=== PATIENT | male | born 1975 | race Caucasian/White ===

== ENCOUNTER 2017-06-27 10:35 | Emergency (ER) | payer OTHER ==
[~2017-06-27] VITALS: Ht 185.4 cm; Wt 93.0 kg
[2017-06-27] MEDS ORDERED: SUMA11AE NS (11:45)
[2017-06-27] MEDS ORDERED: PROP60TA17 PO (11:45)
[2017-06-27] MEDS ORDERED: MULT1TAB69 PO (11:45)
[2017-06-27] MEDS ORDERED: AMOX500C2 PO (11:45)
--- NOTE | 2017-06-27 12:28 | ED Headache ---
General Chief Complaint: Head/Cervical Problems Stated Complaint: MIGRAINE Nursing Triage Note: STARTED GETTING MIGRAINE AND FEELING SLUGGISH ON TUESDAY. WENT TO [facility] ON TUESDAY ET [facility] ON TUESDAY. STATES HE'S ACTING DIFFERENT WITH THIS MIGRAINE. Nursing Sepsis Screen: No Definite Risk Source: patient Exam Limitations: no limitations History of Present Illness Time seen by provider: 12:26 Initial Comments To ER with a retro-orbital headache, fatigue, nausea, rhinorrhea, cough photophobia for the past 3 days. On the first day of this he went to [facility] and was given a shot of medication which helped temporarily. He reports that he has a history of migraines frequently and that they've been bothering him about twice per week since he moved to this area 6 months ago. His states this one is different because he seems more sluggish than usual. He is alert and oriented person place time and situation. Timing/Duration: other Severity/Quality: moderate Location: frontal Prior Headaches/Recent Trauma: frequent headaches Modifying Factors: worse with exposure to light, worse with movement, improves with rest Associated Symptoms: nausea/vomiting, No stiff neck Allergies and Home Medications Allergies Coded Allergies: No Known Drug Allergies (Unverified , 06/27/17) Home Medications Amoxicillin 500 Mg Capsule, 500 MG PO TID for 7 Days, #21 (Reported) Multivitamin 1 Each Tablet, 1 EACH PO, (Reported) Propranolol HCl 60 Mg Tablet, 60 MG PO BID, (Reported) Sumatriptan Succinate 11 Mg Aer.pow.ba, 11 MG NS, (Reported) Constitutional: see HPI Eyes: No Symptoms Reported Ears, Nose, Mouth, Throat: no symptoms reported Respiratory: no symptoms reported Cardiovascular: no symptoms reported Genitourinary: no symptoms reported Musculoskeletal: no symptoms reported Skin: no symptoms reported Psychiatric/Neurological: See HPI, Headache Past Vlxlsss-Fgsisa-Pibbge Hx Patient Social History Alcohol Use: Occasionally Uses Recreational Drug Use: No Smoking Status: Former Smoker Former Smoker, Quit: May 31, 2010 Recent Foreign Travel: No Contact w/Someone Who Travel: No Recent Infectious Disease Expo: No Recent Hopitalizations: No Seasonal Allergies Seasonal Allergies: Yes Surgeries History of Surgeries: No Respiratory History of Respiratory Disorde: Yes Respiratory Disorders: Asthma Cardiovascular History of Cardiac Disorders: No Neurological History of Neurological Disord: Yes Neurological Disorders: Headaches /Migraines Genitourinary History of Genitourinary Disor: No Gastrointestinal History of Gastrointestinal Di: No Musculoskeletal History of Musculoskeletal Dis: No Endocrine History of Endocrine Disorders: Yes (HYPOGLYCEMIA) HEENT History of HEENT Disorders: No Cancer History of Cancer: No Psychosocial History of Psychiatric Problem: Yes Behavioral Health Disorders: Anxiety, Depression Integumentary History of Skin or Integumenta: No Blood Transfusions History of Blood Disorders: No Adverse Reaction to a Blood Tr: No Physical Exam Vital Signs Vital Sign - Last 12Hours 06/27/17 11:27 Temp 97.7 Pulse 48 Resp 18 B/P (MAP) 109/66 Pulse Ox 100 O2 Delivery Room Air Capillary Refill : Less Than 3 Seconds General Appearance: WD/WN, no apparent distress HEENT: PERRL/EOMI, normal ENT inspection Neck: non-tender, full range of motion Respiratory: no respiratory distress, no accessory muscle use Gastrointestinal: non tender, soft Extremities: normal range of motion, non-tender Psychiatric: alert, oriented x 3 Crainal Nerves: normal hearing, normal speech, PERRL Progress/Results/Core Measures Results/Orders Lab Results Laboratory Tests Test 06/27/17 12:38 06/27/17 13:13 Range/Units White Blood Count 7.7 4.3-11.0 10^3/uL Red Blood Count 5.04 4.35-5.85 10^6/uL Hemoglobin 14.7 13.3-17.7 G/DL Hematocrit 42 40-54 % Mean Corpuscular Volume 84 80-99 FL Mean Corpuscular Hemoglobin 29 25-34 PG Mean Corpuscular Hemoglobin Concent 35 32-36 G/DL Red Cell Distribution Width 12.3 10.0-14.5 % Platelet Count 280 130-400 10^3/uL Mean Platelet Volume 10.1 7.4-10.4 FL Neutrophils (%) (Auto) 69 42-75 % Lymphocytes (%) (Auto) 23 12-44 % Monocytes (%) (Auto) 7 0-12 % Eosinophils (%) (Auto) 1 0-10 % Basophils (%) (Auto) 0 0-10 % Neutrophils # (Auto) 5.3 1.8-7.8 X 10^3 Lymphocytes # (Auto) 1.8 1.0-4.0 X 10^3 Monocytes # (Auto) 0.5 0.0-1.0 X 10^3 Eosinophils # (Auto) 0.1 0.0-0.3 10^3/uL Basophils # (Auto) 0.0 0.0-0.1 10^3/uL Sodium Level 142 135-145 MMOL/L Potassium Level 4.2 3.6-5.0 MMOL/L Chloride Level 105 98-107 MMOL/L Carbon Dioxide Level 27 21-32 MMOL/L Anion Gap 10 5-14 MMOL/L Blood Urea Nitrogen 14 7-18 MG/DL Creatinine 0.98 0.60-1.30 MG/DL Estimat Glomerular Filtration Rate > 60 BUN/Creatinine Ratio 14 Glucose Level 102 70-105 MG/DL Calcium Level 9.7 8.5-10.1 MG/DL Total Bilirubin 0.4 0.1-1.0 MG/DL Aspartate Amino Transf (AST/SGOT) 24 5-34 U/L Alanine Aminotransferase (ALT/SGPT) 30 0-55 U/L Alkaline Phosphatase 89 40-136 U/L Total Protein 7.5 6.4-8.2 GM/DL Albumin 4.0 3.2-4.5 GM/DL Urine Color NURIA H Urine Clarity CLEAR Urine pH 6.5 5-9 Urine Specific [place] 1.010 L 1.016-1.022 Urine Protein NEGATIVE NEGATIVE Urine Glucose (UA) NEGATIVE NEGATIVE Urine Ketones NEGATIVE NEGATIVE Urine Nitrite NEGATIVE NEGATIVE Urine Bilirubin NEGATIVE NEGATIVE Urine Urobilinogen NORMAL NORMAL MG/DL Urine Leukocyte Esterase NEGATIVE NEGATIVE Urine RBC (Auto) NEGATIVE NEGATIVE Urine RBC NONE /HPF Urine WBC NONE /HPF Urine Squamous Epithelial Cells RARE /HPF Urine Crystals NONE /LPF Urine Bacteria NEGATIVE /HPF Urine Casts NONE /LPF Urine Mucus SMALL H /LPF Urine Culture Indicated NO Urine Opiates Screen NEGATIVE NEGATIVE Urine Oxycodone Screen NEGATIVE NEGATIVE Urine Methadone Screen NEGATIVE NEGATIVE Urine Propoxyphene Screen NEGATIVE NEGATIVE Urine Barbiturates Screen NEGATIVE NEGATIVE Ur Tricyclic Antidepressants Screen NEGATIVE NEGATIVE Urine Phencyclidine Screen NEGATIVE NEGATIVE Urine Amphetamines Screen NEGATIVE NEGATIVE Urine Methamphetamines Screen NEGATIVE NEGATIVE Urine Benzodiazepines Screen NEGATIVE NEGATIVE Urine Cocaine Screen NEGATIVE NEGATIVE Urine Cannabinoids Screen NEGATIVE NEGATIVE My Orders Orders - RAMOS QUIROGA [employer] Cbc With Automated Diff (06/27/17 12:21) Comprehensive Metabolic Panel (06/27/17 12:21) Ua Culture If Indicated (06/27/17 12:21) Drug Screen Stat (Urine) (06/27/17 12:21) Saline Lock/Iv-Start (06/27/17 12:21) Ct Head Wo (06/27/17 12:21) Ketorolac Injection (Toradol Injection) (06/27/17 12:30) Ns Iv 1000 Ml (Sodium Chloride 0.9%) (06/27/17 12:30) Prochlorperazine Injection (Compazine In (06/27/17 12:30) Diphenhydramine Injection (Benadryl Inje (06/27/17 12:30) Medications Given in ED Current Medications Medications Dose Ordered Sig/Nestor Route Start Time Stop Time Status Last Admin Dose Admin Diphenhydramine HCl 12.5 mg ONCE ONCE IVP 06/27/17 12:30 06/27/17 12:31 DC 06/27/17 12:33 12.5 MG Ketorolac Tromethamine 30 mg ONCE ONCE IVP 06/27/17 12:30 06/27/17 12:31 DC 06/27/17 12:32 30 MG Prochlorperazine Edisylate 10 mg ONCE ONCE IV 06/27/17 12:30 06/27/17 12:31 DC 06/27/17 12:32 10 MG Vital Signs/I&O Vital Sign - Last 12Hours 06/27/17 11:27 Temp 97.7 Pulse 48 Resp 18 B/P (MAP) 109/66 Pulse Ox 100 O2 Delivery Room Air Blood Pressure Mean: 80 Diagnostic Imaging Diagonstic Imaging: CT Comments NAME: [facility] REC#: [id number] PT STATUS: REG ER : 1975 PHYSICIAN: RAMOS QUIROGA APRN ADMIT DATE: 06/27/17/ER Draft Date of Exam:06/27/17 CT HEAD WO PROCEDURE: CT head without contrast. TECHNIQUE: Multiple contiguous axial images were obtained through the brain without the use of intravenous contrast. INDICATION: Migraine headaches. COMPARISON: None FINDINGS: No acute intracranial hemorrhage, mass effect or edema is seen. Woodson-white junction is preserved. No focal abnormality is seen. The ventricles appear normal. The paranasal sinuses and mastoids are clear as visualized. IMPRESSION: No acute intracranial abnormality is seen. Dictated on workstation # [id number] Dict: 06/27/17 1252 Trans: 06/27/17 1304 [id number] Interpreted by: KWAN HARRINGTON DO Electronically signed by: Departure Communication (Admissions) Progress Notes He is concerned about why he is so much more fatigued with this migraine than typically. I advised and is likely because of the viral syndrome that is to account for his rhinorrhea, cough in combination with a migraine.. Impression Impression: Primary Impression: Headache Disposition: 01 HOME, SELF-CARE Condition: Improved Departure-Patient Inst. Decision time for Depature: 13:36 Referrals: NO,LOCAL PHYSICIAN (PCP) Primary Care Physician Patient Instructions: Headache, Adult (DC) Add. Discharge Instructions: 1. Follow-up with your regular doctor 2. Return to ER for any concerns 3. All discharge instructions reviewed with patient and/or family. Voiced understanding. RAMOS QUIROGA APRN Jun 27, 2017 12:28
[2017-06-27] MEDS ORDERED: PROCHLORPERAZINE 10 MG/2ML INJ (COMPAZINE) IV ONE (12:30)
[2017-06-27] MEDS ORDERED: KETOROLAC 30 MG/ML VIAL IVP ONE (12:30)
[2017-06-27] MEDS ORDERED: NS IV 1000 ML 1,000 ML IV SCH (12:30)
[2017-06-27] MEDS ORDERED: diphenhydrAMINE 50 MG/ML INJ (BENADRYL) IVP ONE (12:30)
[2017-06-27 12:49] LABS: BASOPHILS % (AUTO) 0 % (0-10); EOSINOPHILS # (AUTO) 0.1 10^3/uL (0.0-0.3); EOSINOPHILS % (AUTO) 1 % (0-10); LYMPHOCYTES # (AUTO) 1.8 X 10^3 (1.0-4.0); LYMPHOCYTES % (AUTO) 23 % (12-44); MEAN CORPUSCULAR HEMOGLOBIN 29 PG (25-34); MEAN CORPUSCULAR HGB CONC 35 G/DL (32-36); MEAN CORPUSCULAR VOLUME 84 FL (80-99); MEAN PLATELET VOLUME 10.1 FL (7.4-10.4); MONOCYTES # (AUTO) 0.5 X 10^3 (0.0-1.0); MONOCYTES % (AUTO) 7 % (0-12); NEUTROPHILS # (AUTO) 5.3 X 10^3 (1.8-7.8); NEUTROPHILS % (AUTO) 69 % (42-75); PLATELET COUNT 280 10^3/uL (130-400); RED BLOOD COUNT 5.04 10^6/uL (4.35-5.85); RED CELL DISTRIBUTION WIDTH 12.3 % (10.0-14.5); WHITE BLOOD COUNT 7.7 10^3/uL (4.3-11.0)
--- NOTE | 2017-06-27 13:04 | Diagnostic Imaging Report ---
PROCEDURE: CT head without contrast. TECHNIQUE: Multiple contiguous axial images were obtained through the brain without the use of intravenous contrast. INDICATION: Migraine headaches. COMPARISON: None FINDINGS: No acute intracranial hemorrhage, mass effect or edema is seen. Woodson-white junction is preserved. No focal abnormality is seen. The ventricles appear normal. The paranasal sinuses and mastoids are clear as visualized. IMPRESSION: No acute intracranial abnormality is seen. Dictated by: Dictated on workstation # [id number]
[2017-06-27 13:06] LABS: ALANINE AMINOTRANSFERASE 30 U/L (0-55); ANION GAP 10 MMOL/L (5-14); ASPARTATE AMINO TRANSFERASE 24 U/L (5-34); BILIRUBIN,TOTAL 0.4 MG/DL (0.1-1.0); BLOOD UREA NITROGEN 14 MG/DL (7-18); BUN/CREATININE RATIO 14; CALCIUM 9.7 MG/DL (8.5-10.1); CARBON DIOXIDE 27 MMOL/L (21-32); CHLORIDE 105 MMOL/L (98-107); CREATININE SERUM 0.98 MG/DL (0.60-1.30); GFR ESTIMATED > 60; GLUCOSE 102 MG/DL (70-105); POTASSIUM 4.2 MMOL/L (3.6-5.0); SODIUM 142 MMOL/L (135-145); TOTAL PROTEIN 7.5 GM/DL (6.4-8.2)
[2017-06-27 13:23] LABS: BILIRUBIN,URINE NEGATIVE (NEGATIVE); KETONES,URINE NEGATIVE (NEGATIVE); LEUKOCYTE ESTERASE ,URINE NEGATIVE (NEGATIVE); NITRITE,URINE NEGATIVE (NEGATIVE); PH,URINE 6.5 (5-9); PROTEIN,URINE NEGATIVE (NEGATIVE); UROBILINOGEN,URINE NORMAL (NORMAL)
[2017-06-27 13:36] LABS: SQUAMOUS EPITHELIAL CELL,UR RARE /HPF
[2017-06-27 13:51] VITALS: BP 132/70
== END 2017-06-27 13:51 | disposition home or self-care (01) ==
LOC: ER 10:44
DX: G43.909 Migraine, unspecified, not intractable, without status migrainosus (principal); J45.909 Unspecified asthma, uncomplicated; F41.9 Anxiety disorder, unspecified; F32.9 Major depressive disorder, single episode, unspecified; Z87.891 Personal history of nicotine dependence
CPT/HCPCS: 36415; 70450; 80053; 80306; 81000; 85025; 96361; 96374; 96375

== ENCOUNTER 2019-04-13 10:23 | Outpatient (RCR) | payer BC, OTHER ==
[~2019-04-13 10:23] MED LIST: AMOX500C2 PO; MULT1TAB69 PO; PROP60TA17 PO; SUMA11AE NS
[2019-04-27] MEDS ORDERED: NS IV 1000 ML 1,000 ML ONE (07:43)
== END 2019-07-12 | disposition home or self-care (01) ==
LOC: CARD 10:23
PROVIDERS: ATTEND Family Medicine
DX: R00.2 Palpitations (principal)

== ENCOUNTER 2020-03-10 10:54 | Emergency (ER) | payer BC ==
[~2020-03-10] VITALS: Ht 182.9 cm; Wt 90.9 kg
[2020-03-10] MEDS ORDERED: diphenhydrAMINE 50 MG/ML INJ (BENADRYL) IM STA (11:23)
--- NOTE | 2020-03-10 11:26 | ED General ---
General Stated Complaint: MIGRAINE; BALANCE ISSUES; HAL ARM NUMBNESS Source of Information: Patient, RN/MD Exam Limitations: No Limitations History of Present Illness Date Seen by Provider: March 10, 2020 Time Seen by Provider: 11:20 Initial Comments This patient is a 44-year-old male with a long history of migraine headaches. Presents to the emergency department with complaint of a migraine that started early this morning. Patient states causes ringing in the ears was wearing earplu gs. Patient states usually would take propanolol but has not taken it in over a year causes headaches were better. We'll do medical evaluation treatment is needed. Timing/Duration: 4-6 Hours Severity: Moderate Associated Systoms: No Denies Symptoms, No Chest Pain, No Cough, No Diaphoresis, No Fever/Chills, No Headaches, No Loss of Appetite, No Malaise, No Nausea/Vomiting, No Rash, No Seizure, No Shortness of Air, No Syncope, No Weakness, No Other Allergies and Home Medications Allergies Coded Allergies: No Known Drug Allergies (Unverified , 06/27/17) Home Medications Amoxicillin 500 Mg Capsule, 500 MG PO TID, (Reported) Propranolol HCl 60 Mg Tablet, 60 MG PO BID, (Reported) Patient Home Medication List Home Medication List Reviewed: Yes Review of Systems Review of Systems Constitutional: No no symptoms reported; see HPI; No chills, No diaphoresis, No dizziness, No fever, No malaise, No weakness, No weight gain, No weight loss, No other EENTM: No see HPI, No no symptoms reported, No ear discharge, No hearing loss, No ear pain, No blurred vision, No double vision, No eye pain, No tearing, No vision loss, No dental problems, No hoarseness, No mouth pain, No mouth swelling, No epistaxis, No nose congestion, No nose pain, No throat pain, No throat swelling, No other Respiratory: No no symptoms reported, No see HPI, No cough, No dyspnea on exertion, No hemoptysis, No orthopnea, No phlegm, No short of breath, No stridor, No wheezing, No other Cardiovascular: No no symptoms reported, No see HPI, No chest pain, No edema, No Hx of Intervention, No palpitations, No syncope, No vascular heart diseas, No other Gastrointestinal: No RUQ, No LUQ, No RLQ, No LLQ, No no symptoms reported, No see HPI, No abdominal pain, No constipation, No diarrhea, No dysphagia, No hematemesis, No heartburn, No jaundice, No loss of appetite, No melena, No nausea, No vomiting, No other Genitourinary: No no symptoms reported, No see HPI, No decreased output, No discharge, No dysuria, No frequency, No hematuria, No hesitancy, No incontinence, No nocturia, No pain, No other Musculoskeletal: No no symptoms reported, No see HPI, No back pain, No gout, No joint pain, No joint swelling, No muscle pain, No muscle stiffness, No muscle cramps, No muscle twitching, No muscle weakness, No neck pain, No other Skin: No no symptoms reported, No see HPI, No change in color, No change in hair/nails, No dryness, No hx of skin cancer, No lesions, No lumps, No pruritus, No rash, No other Psychiatric/Neurological: See HPI All Other Systems Reviewed Negative Unless Noted: Yes Past Tbfaxpa-Ydgeku-Gibzud Hx Patient Social History Former Smoker, Quit: May 31, 2010 Recent Foreign Travel: No Contact w/Someone Who Travel: No Recent Hopitalizations: No Seasonal Allergies Seasonal Allergies: Yes Past Medical History Surgeries: No Respiratory: Yes Asthma Cardiac: No Neurological: Yes Headaches /Migraines Genitourinary: No Gastrointestinal: No Musculoskeletal: No Endocrine: Yes (HYPOGLYCEMIA) HEENT: No Cancer: No Psychosocial: Yes Anxiety, Depression Integumentary: No Blood Disorders: No Adverse Reaction/Blood Tranf: No Physical Exam Vital Signs Vital Signs - First Documented 03/10/20 11:34 Temp 36.5 Pulse 81 Resp 18 B/P (MAP) 116/70 (85) Pulse Ox 100 O2 Delivery Room Air Capillary Refill : Height, Weight, BMI Height: 6'1.00" Weight: 205lbs. oz. 92.814019bo; BMI Method:Stated General Appearance: No Apparent Distress, WD/WN HEENT: PERRL/EOMI, TMs Normal, Normal ENT Inspection, Pharynx Normal Neck: Full Range of Motion, Normal Inspection, Non Tender, Supple, Carotid Bruit Respiratory: Chest Non Tender, Lungs Clear, Normal Breath Sounds, No Accessory Muscle Use, No Respiratory Distress Cardiovascular: Regular Rate, Rhythm, No Edema, No Gallop, No JVD, No Murmur, Normal Peripheral Pulses Gastrointestinal: Normal Bowel Sounds, No Organomegaly, No Pulsatile Mass, Non Tender, Soft Neurologic/Psychiatric: Alert, Oriented x3, No Motor/Sensory Deficits, Normal Mood/Affect Progress/Results/Core Measures Suspected Sepsis SIRS Temperature: Pulse: Respiratory Rate: Blood Pressure / Mean: Results/Orders My Orders Orders - JOSEPH YOUNG MD Metoclopramide Injection (Reglan Injecti (03/10/20 11:30) Ketorolac Injection (Toradol Injection) (03/10/20 11:30) Diphenhydramine Injection (Benadryl Inje (03/10/20 11:23) Medications Given in ED Current Medications Medications Dose Ordered Sig/Nestor Route Start Time Stop Time Status Last Admin Dose Admin Ketorolac Tromethamine 60 mg ONCE ONCE IM 03/10/20 11:30 03/10/20 11:31 DC 03/10/20 11:54 60 MG Metoclopramide HCl 10 mg ONCE ONCE IVP 03/10/20 11:30 03/10/20 11:31 DC 03/10/20 11:53 10 MG Vital Signs/I&O 03/10/20 11:34 Temp 36.5 Pulse 81 Resp 18 B/P (MAP) 116/70 (85) Pulse Ox 100 O2 Delivery Room Air Capillary Refill : Progress Note : Time: 12:13 Progress Note Patient states that he is getting some relief from the medications for his headache. We did discuss at length with patient about options. Patient be given a prescription for Maxalt. Patient is to follow-up with his primary care physician in 2-3 days for any additional medications. Patient also should be referred to neurology by PCP. Departure Impression Primary Impression: Migraine Disposition: 01 HOME, SELF-CARE Condition: Stable Departure-Patient Inst. Decision time for Depature: 12:14 Referrals: KARELY SUTTON MD (PCP/Family) Primary Care Physician Patient Instructions: Migraine Headache (DC) Add. Discharge Instructions: Patient be given a prescription for Maxalt. Patient is to follow-up with his primary care physician in 2-3 days for any additional medications. Patient also should be referred to neurology by PCP. Scripts Rizatriptan Benzoate (Maxalt) 10 Mg Tablet 10 MG PO ONCE for 7 Days, #7 TAB 0 Refills Prov: JOSEPH YOUNG MD 03/10/20 JOSEPH YOUNG MD March 10, 2020 11:26
[2020-03-10] MEDS ORDERED: KETOROLAC 60 MG/2 ML VIAL IM ONE (11:30)
[2020-03-10] MEDS ORDERED: METOCLOPRAMIDE INJ 10 MG/2 ML (REGLAN) IVP ONE (11:30)
[2020-03-10] MEDS ORDERED: RIZA10TA23 PO (12:15)
[2020-03-10 12:22] VITALS: BP 111/70
--- OUTSIDE RECORDS SUMMARY | 2020-03-10 12:44 | XMS REPORT | Continuity of Care Document ---
Demographics Preferred Language Unknown Marital Status Unknown Zoroastrianism Affiliation Unknown Race Unknown Ethnic Group Unknown Author Organization Unknown Address Unknown Phone Unavailable Allergies Active Description Code Type Severity Reaction Onset Reported/Identified Relationship to Patient Clinical Status Yes No Known Drug Allergies [id number] Drug Allergy Unknown N/A 06/27/2017 Medications There is no data. Problems Date Dx Coded Attending Type Code Diagnosis Diagnosed By 06/27/2017 RAMOS QUIROGA APRN Ot F32 .9 MAJOR DEPRESSIVE DISORDER, SINGLE EPISOD 06/27/2017 RAMOS QUIROGA APRN Ot F41 .9 ANXIETY DISORDER, UNSPECIFIED 06/27/2017 RAMOS QUIROGA APRN Ot G43.909 MIGRAINE, UNSP, NOT INTRACTABLE, WITHOUT 06/27/2017 RAMOS QUIROGA APRN Ot J45.909 UNSPECIFIED ASTHMA, UNCOMPLICATED 06/27/2017 RAMOS QUIROGA APRN Ot R51 HEADACHE 06/27/2017 RAMOS QUIROGA APRN Ot Z87.891 PERSONAL HISTORY OF NICOTINE DEPENDENCE 06/29/2017 RAMOS QUIROGA APRN Ot F32 .9 MAJOR DEPRESSIVE DISORDER, SINGLE EPISOD 06/29/2017 RAMOS QUIROGA APRN Ot F41 .9 ANXIETY DISORDER, UNSPECIFIED 06/29/2017 RAMOS QUIROGA APRN Ot G43.909 MIGRAINE, UNSP, NOT INTRACTABLE, WITHOUT 06/29/2017 RAMOS QUIROGA APRN Ot J45.909 UNSPECIFIED ASTHMA, UNCOMPLICATED 06/29/2017 RAMOS QUIROGA APRN Ot R51 HEADACHE 06/29/2017 RAMOS QUIROGA APRN Ot Z87.891 PERSONAL HISTORY OF NICOTINE DEPENDENCE 04/16/2019 SELF BUBBA VARGHESE Ot R00.2 PALPITATIONS 07/12/2019 SELF BUBBA VARGHESE Ot R00.2 PALPITATIONS 07/16/2019 SELF BUBBA VARGHESE Ot R00.2 PALPITATIONS Procedures There is no data. Results Test Result Range CBC With Differential/Platelet - 7 18:23 WBC 8.0 x10E3/uL 3.4-10.8 RBC 4.75 x10E6/uL 4.14-5.80 Hemoglobin 14.2 g/dL 12.6-17.7 Hematocrit 40.6 % 37.5-51.0 MCV 86 fL 79-97 MCH 29.9 pg 26.6-33.0 MCHC 35.0 g/dL 31.5-35.7 RDW 13.8 % 12.3-15.4 Platelets 253 x10E3/uL 150-379 Neutrophils 62 % Lymphs 27 % Monocytes 9 % Eos 2 % Basos 0 % Neutrophils (Absolute) 4.9 x10E3/uL 1.4- 7.0 Lymphs (Absolute) 2.2 x10E3/uL 0.7-3.1 Monocytes(Absolute) 0.8 x10E3/uL 0.1-0.9 Eos (Absolute) 0.1 x10E3/uL 0.0-0.4 Baso (Absolute) 0.0 x10E3/uL 0.0-0.2 Immature Granulocytes 0 % Immature Grans (Abs) 0.0 x10E3/uL 0.0-0. 1 Comp. Metabolic Panel (14) - 03/10/17 18 :23 Glucose, Serum 100 mg/dL 65-99 BUN 11 mg/dL 6-24 Creatinine, Serum 1.04 mg/dL 0.76-1.27 eGFR If NonAfricn Am 89 mL/min/1.73 >59 eGFR If Africn Am 103 mL/min/1.73 >5 9 BUN/Creatinine Ratio 11 9-20 Sodium, Serum 142 mmol/L 134-144 Potassium, Serum 3.7 mmol/L 3.5-5.2 Chloride, Serum 100 mmol/L 96-106 Carbon Dioxide, Total 27 mmol/L 18-29 Calcium, Serum 8.9 mg/dL 8.7-10.2 Protein, Total, Serum 6.9 g/dL 6.0-8.5 Albumin, Serum 4.3 g/dL 3.5-5.5 Globulin, Total 2.6 g/dL 1.5-4.5 A/G Ratio 1.7 1.2-2.2 Bilirubin, Total 0.4 mg/dL 0.0-1.2 Alkaline Phosphatase, S 71 IU/L 39-117 AST (SGOT) 21 IU/L 0-40 ALT (SGPT) 25 IU/L 0-44 TSH - 03/10/17 18:23 TSH 3.020 uIU/mL 0.450-4.500 Complete blood count (CBC) with automate d white blood cell (WBC) differential - 06/27/17 12:38 Blood leukocytes automated count (number/volume) 7.7 10*3/uL 4.3-11.0 Blood erythrocytes automated count (number/volume) 5.04 10*6/uL 4.35-5.85 Venous blood hemoglobin measurement (mass/volume) 14.7 g/dL 13.3-17.7 Blood hematocrit (volume fraction) 42 % 40-54 Automated erythrocyte mean corpuscular volume 84 [ foz_us] 80-99 Automated erythrocyte mean corpuscular h emoglobin (mass per erythrocyte) 29 pg 25-34 Automated erythrocyte mean corpuscular h emoglobin concentration measurement (mass/volume) 35 g/dL 32-36 Automated erythrocyte distribution width ratio 12. 3 % 10.0- 14.5 Automated blood platelet count (count/volume) 280 10*3/uL 130-400 Automated blood platelet mean volume measurement 10.1 [foz_us] 7.4-10.4 Automated blood neutrophils/100 leukocytes 69 % 42-75 Automated blood lymphocytes/100 leukocytes 23 % 12-44 Blood monocytes/100 leukocytes 7 % 0-12 Automated blood eosinophils/100 leukocytes 1 % 0-10 Automated blood basophils/100 leukocytes 0 % 0-10 Blood neutrophils automated count (number/volume) 5.3 10*3 1.8-7.8 Blood lymphocytes automated count (number/volume) 1.8 10*3 1.0-4.0 Blood monocytes automated count (number/volume) 0. 5 10*3 0.0-1.0 Automated eosinophil count 0.1 10*3/uL 0 .0-0.3 Automated blood basophil count (count/volume) 0.0 10*3/uL 0.0-0.1 Comprehensive metabolic panel - 06/27/17 12:38 Serum or plasma sodium measurement (moles/volume) 142 mmol/L 135-145 Serum or plasma potassium measurement (moles/volume) 4.2 mmol/L 3.6-5.0 Serum or plasma chloride measurement (moles/volume) 105 mmol/L 98-107 Carbon dioxide 27 mmol/L 21-32 Serum or plasma anion gap determination (moles/volume) 10 mmol/L 5-14 Serum or plasma urea nitrogen measurement (mass/volume ) 14 mg/dL 7-18 Serum or plasma creatinine measurement (mass/volume) 0.98 mg/dL 0.60-1.30 Serum or plasma urea nitrogen/creatinine mass ratio 14 NRG Serum or plasma creatinine measurement w ith calculation of estimated glomerular filtration rate > NRG Serum or plasma glucose measurement (mass/volume) 102 mg/dL 70-105 Serum or plasma calcium measurement (mass/volume) 9.7 mg/dL 8.5-10.1 Serum or plasma total bilirubin measurement (mass/volu me) 0.4 mg/dL 0.1-1.0 Serum or plasma alkaline phosphatase cassandra surement (enzymatic activity/volume) 89 U/L 40-136 Serum or plasma aspartate aminotransfera se measurement (enzymatic activity/volume) 24 U/L 5-34 Serum or plasma alanine aminotransferase measurement (enzymatic activity/volume) 30 U/L 0-55 Serum or plasma protein measurement (mass/volume) 7.5 g/dL 6.4-8.2 Serum or plasma albumin measurement (mass/volume) 4.0 g/dL 3.2-4.5 Urine drug screening test - 06/27/17 13: 13 Urine phencyclidine detection by screening method NEGATIVE NEGATIVE Urine benzodiazepines detection by screening method NEGATIVE NEGATIVE Urine cocaine detection NEGATIVE NEGATI VE Urine amphetamines detection by screening method N EGATIVE NEGATIVE Urine methamphetamine detection by screening method NEGATIVE NEGATIVE Urine cannabinoids detection by screening method N EGATIVE NEGATIVE Urine opiates detection by screening method NEGATI VE NEGATIVE Urine barbiturates detection NEGATIVE N EGATIVE Screening urine tricyclic antidepressants detection NEGATIVE NEGATIVE Urine methadone detection by screening method NEGA TIVE NEGATIVE Urine oxycodone detection NEGATIVE NEGA TIVE Urine propoxyphene detection NEGATIVE N EGATIVE Complete urinalysis with reflex to cultu re - 06/27/17 13:13 Urine color determination NURIA NRG Urine clarity determination CLEAR NR G Urine pH measurement by test strip 6.5 5-9 Specific gravity of urine by test strip 1.010 1.016-1.022 Urine protein assay by test strip, semi-quantitative NEGATIVE NEGATIVE Urine glucose detection by automated test strip NE GATIVE NEGATIVE Erythrocytes detection in urine sediment by light micr oscopy NEGATIVE NEGATIVE Urine ketones detection by automated test strip NE GATIVE NEGATIVE Urine nitrite detection by test strip NEGATIVE NEGATIVE Urine total bilirubin detection by test strip NEGA TIVE NEGATIVE Urine urobilinogen measurement by automated test strip (mass/volume) NORMAL NORMAL Urine leukocyte esterase detection by dipstick NEG ATIVE NEGATIVE Automated urine sediment erythrocyte cou nt by microscopy (number/high power field) NONE NRG Automated urine sediment leukocyte count by microscopy (number/high power field) NONE NRG Bacteria detection in urine sediment by light microsco py NEGATIVE NRG Squamous epithelial cells detection in u rine sediment by light microscopy RARE NRG Crystals detection in urine sediment by light microsco py NONE NRG Casts detection in urine sediment by light microscopy NONE NRG Mucus detection in urine sediment by light microscopy SMALL NRG Complete urinalysis with reflex to culture NO NRG Encounters ACCT No. Visit Date/Time Discharge Status Pt. Type Provider Facility Loc./Unit Complaint [id number] 03/11/2017 08:50:00 Document Registration [id number] 07/13/2019 00:11:00 019 23:59:59 CLS Preadmit SELF BUBBA VARGHESE a [facility] CARD PALPITATIONS [id number] 04/13/2019 10:23:00 019 00:01:00 DIS Outpatient SELF BUBBA VARGHESE [facility] CARD PALPITATIONS [id number] 06/27/2017 10:44:00 017 13:51:00 DIS Emergency RAMOS QUIROGA APRN [facility] ER MIGRAINE
== END 2020-03-10 12:22 | disposition home or self-care (01) ==
LOC: EDUNIT# 10:54 → ER FS 10:57
DX: G43.909 Migraine, unspecified, not intractable, without status migrainosus (principal)
CPT/HCPCS: 99284

== ENCOUNTER 2020-06-16 10:35 | Emergency (ER) | payer BC ==
[~2020-06-16] VITALS: Ht 183 cm; Wt 86.3 kg
[~2020-06-16 10:35] MED LIST changes: +MULT-567 PO; -MULT1TAB69 PO; +RIZA10TA23 PO
--- NOTE | 2020-06-16 10:50 | ED Chest Pain ---
General Stated Complaint: TIGHTNESS IN CHEST Source: patient Exam Limitations: no limitations History of Present Illness Date Seen by Provider: Jun 16, 2020 Time Seen by Provider: 10:47 Initial Comments 44-year-old male presents with "palpitations" patient reports he felt like his heart was "beating harder and flip-flopping" patient has had issues on and off with this for 20 years. He reports today's symptom where more beating hard and had a little bit of chest pain and a little bit shortness of breath. Patient initially called EMS but refused transport. He had a tracing by EMS that showed normal sinus rhythm with a heart rate of 61. He was given 4 baby aspirin. He does not have any shortness of breath at this time we did not get nauseated no vomiting no radiation of the pain and no diaphoresis. Patient currently takes propranolol for migraines. He also has a diagnosis of anxiety. He reports he's were a Holter monitor in the past but was unable to get the results due to healthcare system change. Allergies and Home Medications Allergies Coded Allergies: No Known Drug Allergies (Unverified , 06/27/17) Home Medications Amoxicillin 500 Mg Capsule, 500 MG PO TID, (Reported) Propranolol HCl 60 Mg Tablet, 60 MG PO BID, (Reported) Rizatriptan Benzoate 10 Mg Tablet, 10 MG PO ONCE Prescribed by: JOSEPH YOUNG on 03/10/20 1215 Patient Home Medication List Home Medication List Reviewed: Yes Review of Systems Review of Systems Constitutional: No chills, No fever, No malaise Respiratory: See HPI; Denies Cough Cardiovascular: See HPI, Chest Pain, Palpitations Gastrointestinal: No Symptoms Reported; Denies Abdominal Pain, Denies Nausea, Denies Vomiting Genitourinary: No Symptoms Reported Musculoskeletal: no symptoms reported Skin: no symptoms reported, change in hair/nails Endocrine: No Symptoms Reported; Denies Excessive Sweating, Denies Flushing Hematologic/Lymphatic: No Symptoms Reported Past Rwtbzam-Pnfsji-Lxyzqc Hx Past Med/Social Hx: Reviewed Nursing Past Med/Soc Hx Patient Social History Former Smoker, Quit: May 31, 2010 2nd Hand Smoke Exposure: No Recent Hopitalizations: No Seasonal Allergies Seasonal Allergies: Yes Past Medical History Surgeries: No Respiratory: Yes Asthma Cardiac: No Neurological: Yes Headaches /Migraines Genitourinary: No Gastrointestinal: No Musculoskeletal: No Endocrine: Yes (HYPOGLYCEMIA) HEENT: No Cancer: No Psychosocial: Yes Anxiety, Depression Integumentary: No Blood Disorders: No Adverse Reaction/Blood Tranf: No Physical Exam Vital Signs Vital Signs - First Documented 06/16/20 10:52 Temp 36.8 Pulse 61 Resp 13 B/P (MAP) 120/69 (86) Pulse Ox 100 O2 Delivery Room Air Capillary Refill : Height, Weight, BMI Height: 6'1.00" Weight: 205lbs. oz. 92.932949dv; 27.00 BMI Method:Stated General Appearance: No Apparent Distress, WD/WN HEENT: PERRL/EOMI Neck: Non Tender, Supple Respiratory: Lungs Clear, Normal Breath Sounds Cardiovascular: Regular Rate, Rhythm, No Edema, Normal Peripheral Pulses Gastrointestinal: Non Tender, Soft Extremity: Normal Capillary Refill, Normal Inspection, Normal Range of Motion Neurologic/Psychiatric: Alert, Oriented x3, No Motor/Sensory Deficits, Normal Mood/Affect, home administrator II-XII Norm as Tested Skin: Normal Color, Warm/Dry Progress/Results/Core Measures Results/Orders Lab Results Laboratory Tests Test 06/16/20 10:50 Range/Units White Blood Count 6.3 4.3-11.0 10^3/uL Red Blood Count 4.90 4.35-5.85 10^6/uL Hemoglobin 14.6 13.3-17.7 G/DL Hematocrit 41 40-54 % Mean Corpuscular Volume 84 80-99 FL Mean Corpuscular Hemoglobin 30 25-34 PG Mean Corpuscular Hemoglobin Concent 36 32-36 G/DL Red Cell Distribution Width 12.2 10.0-14.5 % Platelet Count 252 130-400 10^3/uL Mean Platelet Volume 10.4 7.4-10.4 FL Neutrophils (%) (Auto) 68 42-75 % Lymphocytes (%) (Auto) 23 12-44 % Monocytes (%) (Auto) 6 0-12 % Eosinophils (%) (Auto) 2 0-10 % Basophils (%) (Auto) 1 0-10 % Neutrophils # (Auto) 4.3 1.8-7.8 X 10^3 Lymphocytes # (Auto) 1.5 1.0-4.0 X 10^3 Monocytes # (Auto) 0.4 0.0-1.0 X 10^3 Eosinophils # (Auto) 0.1 0.0-0.3 10^3/uL Basophils # (Auto) 0.0 0.0-0.1 10^3/uL Prothrombin Time 12.8 12.2-14.7 SEC INR Comment 0.9 0.8-1.4 Activated Partial Thromboplast Time 28 24-35 SEC D-Dimer 0.15 0.00-0.49 UG/ML Sodium Level 139 135-145 MMOL/L Potassium Level 4.3 3.6-5.0 MMOL/L Chloride Level 103 98-107 MMOL/L Carbon Dioxide Level 26 21-32 MMOL/L Anion Gap 10 5-14 MMOL/L Blood Urea Nitrogen 19 H 7-18 MG/DL Creatinine 0.95 0.60-1.30 MG/DL Estimat Glomerular Filtration Rate > 60 BUN/Creatinine Ratio 20 Glucose Level 102 70-105 MG/DL Calcium Level 10.1 8.5-10.1 MG/DL Corrected Calcium 9.8 8.5-10.1 MG/DL Magnesium Level 2.1 1.6-2.4 MG/DL Total Bilirubin 0.3 0.1-1.0 MG/DL Aspartate Amino Transf (AST/SGOT) 23 5-34 U/L Alanine Aminotransferase (ALT/SGPT) 21 0-55 U/L Alkaline Phosphatase 75 40-136 U/L Myoglobin 30.2 10.0-92.0 NG/ML Troponin I < 0.30 <0.30 NG/ML Pro-B-Type Natriuretic Peptide 11.6 <75.0 PG/ML Total Protein 7.4 6.4-8.2 GM/DL Albumin 4.4 3.2-4.5 GM/DL Lipase 27 8-78 U/L My Orders Orders - SARAVIA,AMY L DO Cbc With Automated Diff (06/16/20 10:46) Magnesium (06/16/20 10:46) Chest 1 View Ap/Pa Only (06/16/20 10:46) Ekg Tracing (06/16/20 10:46) Comprehensive Metabolic Panel (06/16/20 10:46) Myoglobin Serum (06/16/20 10:46) Protime With Inr (06/16/20 10:46) Partial Thromboplastin Time (06/16/20 10:46) O2 (06/16/20 10:46) Monitor-Rhythm Ecg Trace Only (06/16/20 10:46) Lipid Panel (06/17/20 06:00) Ed Iv/Invasive Line Start (06/16/20 10:46) Lipase (06/16/20 10:46) Fibrin Degradation Products (06/16/20 10:46) Troponin I Fs (06/16/20 10:46) Probnp Fs (06/16/20 10:46) Vital Signs/I&O 06/16/20 06/16/20 10:52 10:52 Temp 36.8 Pulse 61 Resp 13 B/P (MAP) 120/69 (86) Pulse Ox 100 O2 Delivery Room Air Room Air Progress Progress Note : Time: 12:42 Progress Note Patient had no further symptoms while in the ER. Patient's systems are consistent with anxiety however due to the long duty of in a frequency of it I did have a long session with him regarding need to follow-up outpatient with cardiology for further evaluation. Patient should return to the ER as needed. He is stable will be discharged home Initial ECG Impression Date: Jun 16, 2020 Initial ECG Impression Time: 10:42 Initial ECG Rate: 62 Initial ECG Rhythm: Normal Sinus Initial ECG Intervals: Normal Initial ECG Impression: Normal Comment NSR, no acute changes Diagnostic Imaging Diagonstic Imaging: Xray Plain Films/CT/US/NM/MRI: chest Comments [facility] [place] [place] NAME: DOMONIQUE JARQUIN [facility] REC#: [id number] PT STATUS: REG ER : 1975 PHYSICIAN: AMY SARAVIA DO ADMIT DATE: 06/16/20/ER FS Draft Date of Exam:06/16/20 CHEST 1 VIEW AP/PA ONLY INDICATION: Chest pain and chest tightness. TIME OF EXAM: 10:52 a.m. COMPARISON: No prior studies are available for comparison. FINDINGS: The heart size is normal. Lungs are clear. No infiltrates are detected. No effusion or pneumothorax is detected. IMPRESSION: No acute cardiopulmonary process is detected. Departure Impression Primary Impression: Intermittent palpitations Disposition: 01 HOME, SELF-CARE Condition: Stable Departure-Patient Inst. Referrals: KARELY SUTTON MD (PCP/Family) Primary Care Physician Patient Instructions: Generalized Anxiety Disorder, Palpitations (DC) Add. Discharge Instructions: Follow-up with your primary care provider for further outpatient evaluation and cardiology consult AMY SARAVIA DO Jun 16, 2020 10:50
[2020-06-16 11:00] LABS: HEMATOCRIT 41 % (40-54); HEMOGLOBIN 14.6 G/DL (13.3-17.7); MEAN CORPUSCULAR HEMOGLOBIN 30 PG (25-34); MEAN CORPUSCULAR HGB CONC 36 G/DL (32-36); MEAN CORPUSCULAR VOLUME 84 FL (80-99); MEAN PLATELET VOLUME 10.4 FL (7.4-10.4); NEUTROPHILS % (AUTO) 68 % (42-75); PLATELET COUNT 252 10^3/uL (130-400); RED CELL DISTRIBUTION WIDTH 12.2 % (10.0-14.5); WHITE BLOOD COUNT 6.3 10^3/uL (4.3-11.0)
[2020-06-16 11:01] LABS: BASOPHILS % (AUTO) 1 % (0-10); EOSINOPHILS # (AUTO) 0.1 10^3/uL (0.0-0.3); EOSINOPHILS % (AUTO) 2 % (0-10); LYMPHOCYTES # (AUTO) 1.5 X 10^3 (1.0-4.0); LYMPHOCYTES % (AUTO) 23 % (12-44); MONOCYTES # (AUTO) 0.4 X 10^3 (0.0-1.0); MONOCYTES % (AUTO) 6 % (0-12); NEUTROPHILS # (AUTO) 4.3 X 10^3 (1.8-7.8)
--- NOTE | 2020-06-16 11:04 | Diagnostic Imaging Report ---
INDICATION: Chest pain and chest tightness. TIME OF EXAM: 10:52 a.m. COMPARISON: No prior studies are available for comparison. FINDINGS: The heart size is normal. Lungs are clear. No infiltrates are detected. No effusion or pneumothorax is detected. IMPRESSION: No acute cardiopulmonary process is detected. Dictated by: Dictated on workstation # [id number]
[2020-06-16 11:51] LABS: INR 0.9 (0.8-1.4); PROTHROMBIN TIME PATIENT 12.8 SEC (12.2-14.7)
--- OUTSIDE RECORDS SUMMARY | 2020-06-16 11:52 | XMS REPORT | Continuity of Care Document ---
Author Author The Damion [employer] Organization [employer] Address Unknown Phone Unavailable Allergies Active Description Code Type Severity Reaction Onset Reported/Identified Relationship to Patient Clinical Status Yes No Known Drug Allergies [id number] Drug Allergy Unknown N/A 06/27/2017 Medications There is no data. Problems Date Dx Coded Attending Type Code Diagnosis Diagnosed By 06/27/2017 RAMOS QUIROGA CHIEF TECHNICIAN X RAY Ot F32 .9 MAJOR DEPRESSIVE DISORDER, SINGLE EPISOD 06/27/2017 RAMOS QUIROGA APRN Ot F41 .9 ANXIETY DISORDER, UNSPECIFIED 06/27/2017 RAMOS QUIROGA APRN Ot G43.909 MIGRAINE, UNSP, NOT INTRACTABLE, WITHOUT 06/27/2017 RAMOS QUIROGA CHIEF TECHNICIAN X RAY Ot J45.909 UNSPECIFIED ASTHMA, UNCOMPLICATED 06/27/2017 RAMOS QUIROGA CHIEF TECHNICIAN X RAY Ot R51 HEADACHE 06/27/2017 RAMOS QUIROGA CHIEF TECHNICIAN X RAY Ot Z87.891 PERSONAL HISTORY OF NICOTINE DEPENDENCE 06/29/2017 RAMOS QUIROGA APRN Ot F32 .9 MAJOR DEPRESSIVE DISORDER, SINGLE EPISOD 06/29/2017 RAMOS QUIROGA CHIEF TECHNICIAN X RAY Ot F41 .9 ANXIETY DISORDER, UNSPECIFIED 06/29/2017 RAMOS QUIROGA CHIEF TECHNICIAN X RAY Ot G43.909 MIGRAINE, UNSP, NOT INTRACTABLE, WITHOUT 06/29/2017 RAMOS QUIROGA CHIEF TECHNICIAN X RAY Ot J45.909 UNSPECIFIED ASTHMA, UNCOMPLICATED 06/29/2017 RAMOS QUIROGA CHIEF TECHNICIAN X RAY Ot R51 HEADACHE 06/29/2017 RAMOS QUIROGA CHIEF TECHNICIAN X RAY Ot Z87.891 PERSONAL HISTORY OF NICOTINE DEPENDENCE 04/16/2019 SELF BUBBA VARGHESE Ot R00.2 PALPITATIONS 07/12/2019 SELF BUBBA VARGHESE Ot R00.2 PALPITATIONS 07/16/2019 SELF BUBBA VARGHESE Ot R00.2 PALPITATIONS 03/10/2020 JOSEPH YOUNG MD Ot G43.909 MIGRAINE, UNSP, NOT INTRACTABLE, WITHOUT 03/10/2020 JOSEPH YOUNG MD Ot R5 1 HEADACHE 03/12/2020 HANNAH VARGHESE, JOSEPH Todd Ot G43.909 MIGRAINE, UNSP, NOT INTRACTABLE, WITHOUT 03/12/2020 HANNAH VARGHESE, JOSEPH Todd Ot R5 1 HEADACHE Procedures There is no data. Results Test [...] urinalysis with reflex to culture NO NRG LIPID PANEL - 02/27/20 08:48 CHOLESTEROL, TOTAL 214 mg/dL <200 HDL CHOLESTEROL 52 mg/dL > OR = 40 TRIGLYCERIDES 125 mg/dL <150 LDL-CHOLESTEROL 137 mg/dL (calc) NRG CHOL/HDLC RATIO 4.1 (calc) <5.0 NON HDL CHOLESTEROL 162 mg/dL (calc) <13 0 CMP - 02/27/20 08:48 GLUCOSE 92 mg/dL 65-99 UREA NITROGEN (BUN) 19 mg/dL 7-25 CREATININE 0.99 mg/dL 0.60-1.35 eGFR NON-AFR. GIBRALTARIAN 92 mL/min/1.73m2 > OR = 60 eGFR 107 mL/min/1.73m2 > OR = 60 BUN/CREATININE RATIO NOT APPLICABLE (calc) 6-22 SODIUM 142 mmol/L 135-146 POTASSIUM 4.2 mmol/L 3.5-5.3 CHLORIDE 106 mmol/L 98-110 CARBON DIOXIDE 30 mmol/L 20-32 CALCIUM 9.5 mg/dL 8.6-10.3 PROTEIN, TOTAL 6.6 g/dL 6.1-8.1 ALBUMIN 4.0 g/dL 3.6-5.1 GLOBULIN 2.6 g/dL (calc) 1.9-3.7 ALBUMIN/GLOBULIN RATIO 1.5 (calc) 1.0-2. 5 BILIRUBIN, TOTAL 0.5 mg/dL 0.2-1.2 ALKALINE PHOSPHATASE 67 U/L 36-130 AST 18 U/L 10-40 ALT 22 U/L 9-46 CBC - 02/27/20 08:48 WHITE BLOOD CELL COUNT 6.0 Thousand/uL 3 .8-10.8 RED BLOOD CELL COUNT 4.76 Million/uL 4.2 0-5.80 HEMOGLOBIN 13.7 g/dL 13.2-17.1 HEMATOCRIT 41.1 % 38.5-50.0 MCV 86.3 fL 80.0-100.0 MCH 28.8 pg 27.0-33.0 MCHC 33.3 g/dL 32.0-36.0 RDW 12.9 % 11.0-15.0 PLATELET COUNT 320 Thousand/uL 140-400 MPV 9.9 fL 7.5-12.5 ABSOLUTE NEUTROPHILS 3630 cells/uL 1500- 7800 ABSOLUTE LYMPHOCYTES 1734 cells/uL 850-3 900 ABSOLUTE MONOCYTES 498 cells/uL 200-950 ABSOLUTE EOSINOPHILS 120 cells/uL 15-500 ABSOLUTE BASOPHILS 18 cells/uL 0-200 NEUTROPHILS 60.5 % NRG LYMPHOCYTES 28.9 % NRG MONOCYTES 8.3 % NRG EOSINOPHILS 2.0 % NRG BASOPHILS 0.3 % NRG Encounters ACCT No. Visit Date/Time Discharge Status Pt. Type Provider Facility Loc./Unit Complaint [id number] 03/18/2020 10:00:00 03/18/2020 23:59: 59 CLS Outpatient KARELY SUTTON [facility] [id number] 02/27/2020 08:45:00 Document Registration [id number] 03/11/2017 08:50:00 Document Registration [id number] 03/10/2020 10:57:00 020 12:22:00 DIS Emergency JOSEPH YOUNG MD [facility] ER FS MIGRAINE; BALANCE ISSUE S; HAL ARM NUMBNESS [id number] 07/13/2019 00:11:00 019 23:59:59 CLS Preadmit SELF BUBBA VARGHESE [facility] CARD PALPITATIONS [id number] 04/13/2019 10:23:00 019 00:01:00 DIS Outpatient SELF BUBBA VARGHESE [facility] CARD PALPITATIONS [id number] 06/27/2017 10:44:00 017 13:51:00 DIS Emergency RAMOS QUIROGA APRN [facility] ER MIGRAINE
--- OUTSIDE RECORDS SUMMARY | 2020-06-16 11:52 | XMS REPORT ---
Author Author Damion PERLA Organization [facility] Address [address] [place] [address] Care Team Providers Care Dyeing Machine Feeder Name Role Phone CHARLIE PERLA Unavailable PROBLEMS Type Condition ICD9-CM Code FVM13-RT Code Onset Dates Condition S tatus SNOMED Code Problem Mild intermittent asthma without complication J45. 20 Active [id number] Problem Migraine without aura and without status migrain osus, not intractable G43.009 Active [id number] Problem Migraine with aura and without status migrainosu s, not intractable G43.109 Active 2899714 ALLERGIES Substance Reaction Event Type Date Status bees anaphylaxis Non Drug Allergy Jan, Active ENCOUNTERS Encounter Location Date Diagnosis [address] [address] Jan, Mild intermittent asthma wit hout complication J45.20 [place] [address] [address] May, [place] [address] [address] May, Migraine without aura and wi thout status migrainosus, not intractable G43.009 and Acute non-recurrent maxillary sinusitis J01.00 [place] [address] [address] Mar, Migraine with aura and witho ut status migrainosus, not intractable G43.109 ; Intermittent palpitations R00.2 and Family history of heart disease Z82.49 [place] [address] [address] [place] [id number] [place] [address] February, Migraine with aura and witho ut status migrainosus, not intractable G43.109 ; Intermittent palpitations R00.2 and Family history of heart disease Z82.49 [facility] [address] [facility] [id number] [place] [address] Jan, History of migraine headache s Z86.69 IMMUNIZATIONS No Known Immunizations SOCIAL HISTORY Never Assessed REASON FOR VISIT PT requesting EKG----DBennettRN, work physical done at [facility] and recomm ended EKG d/t h/o heart palpitations PLAN OF CARE VITAL SIGNS Height 71 in 2018-02-03 Weight 201 lbs 2018-02-03 Temperature 98.0 degrees Fahrenheit 2018-02-03 Heart Rate 60 bpm 2018-02-03 Respiratory Rate 20 2018-02-03 BMI 28.03 kg/m2 2018-02-03 Blood pressure systolic 90 mmHg 2018-02-03 Blood pressure diastolic 60 mmHg 2018-02-03 MEDICATIONS Medication Instructions Dosage Frequency Start Date End Date Duration S rukhsana Martinestimothy HFA 108 (90 Base) MCG/ACT Inhalation every 6 hrs 2 puffs as needed 6h Jan, Active Claritin 10 MG Orally Once a day 1 capsule 24h Not-Taking Propranolol HCl 60 mg Orally Once a day 1 tablet 24h Active Imitrex STATdose System 6 MG/0.5ML Subcutaneous Twice a day 0.5 ml as needed 12h 25 May, 2017 Not-Taking RESULTS No Results PROCEDURES No Known procedures INSTRUCTIONS MEDICATIONS ADMINISTERED No Known Medications MEDICAL (GENERAL) HISTORY Type Description Date Medical History migraines Medical History asthma Medical History "back issues" Medical History Referred to Cardiology Dr. Keys 2016 b ut No Showed Appt
--- OUTSIDE RECORDS SUMMARY | 2020-06-16 11:52 | XMS REPORT ---
Author Damion Cunningham [facility] Address [address] [place] [address] Care Team Providers Care Health Services Director Name Role Phone ARACELI RUBI Unavailable PROBLEMS Type Condition ICD9-CM Code IUB47-DO Code Onset Dates Condition S tatus SNOMED Code Problem Migraine without aura and without status migrain osus, not intractable G43.009 Active 925067385 Problem Migraine with aura and without status migrainosu s, not intractable G43.109 Active 0304613 ALLERGIES Substance Reaction Event Type Date Status bees anaphylaxis Non Drug Allergy February, Active SOCIAL HISTORY Never Assessed PLAN OF CARE Activity Details Follow Up 4 Weeks Reason:Migraine VITAL SIGNS Height 71 in 2017-03-10 Weight 203 lbs 2017-03-10 Temperature 98.2 degrees Fahrenheit 2017-03-10 Heart Rate 84 bpm 2017-03-10 Respiratory Rate 20 2017-03-10 BMI 28.31 kg/m2 2017-03-10 Blood pressure systolic 124 mmHg 2017-03-10 Blood pressure diastolic 72 mmHg 2017-03-10 MEDICATIONS Medication Instructions Dosage Frequency Start Date End Date Duration S tatus Propranolol HCl 60 mg Orally daily x 7 days and then bid 1 tablet February, 90 days Active RESULTS Name Result Date Reference Range TSH 2017-03-10 TSH 3.020 0.450-4.500 CBC 2017-03-10 WBC 8.0 3.4-10.8 RBC 4.75 4.14-5.80 Hemoglobin 14.2 12.6-17.7 Hematocrit 40.6 37.5-51.0 MCV 86 79-97 MCH 29.9 26.6-33.0 MCHC 35.0 31.5-35.7 RDW 13.8 12.3-15.4 Platelets 253 150-379 Neutrophils 62 Lymphs 27 Monocytes 9 Eos 2 Basos 0 Neutrophils (Absolute) 4.9 1.4-7.0 Lymphs (Absolute) 2.2 0.7-3.1 Monocytes(Absolute) 0.8 0.1-0.9 Eos (Absolute) 0.1 0.0-0.4 Baso (Absolute) 0.0 0.0-0.2 Immature Granulocytes 0 Immature Grans (Abs) 0.0 0.0-0.1 CMP 2017-03-10 Glucose, Serum 100 65-99 BUN 11 6-24 Creatinine, Serum 1.04 0.76-1.27 eGFR If NonAfricn Am 89 >59 eGFR If Africn Am 103 >59 BUN/Creatinine Ratio 11 9-20 Sodium, Serum 142 134-144 Potassium, Serum 3.7 3.5-5.2 Chloride, Serum 100 96-106 Carbon Dioxide, Total 27 18-29 Calcium, Serum 8.9 8.7-10.2 Protein, Total, Serum 6.9 6.0-8.5 Albumin, Serum 4.3 3.5-5.5 Globulin, Total 2.6 1.5-4.5 A/G Ratio 1.7 1.2-2.2 Bilirubin, Total 0.4 0.0-1.2 Alkaline Phosphatase, S 71 39-117 AST (SGOT) 21 0-40 ALT (SGPT) 25 0-44 PROCEDURES Procedure Date Ordered Result Body Site EKG, TRACING (IN-HOUSE) 2017-03-10 N/A COMPREHEN METABOLIC PANEL March 10, 2017 ASSAY THYROID STIM HORMONE March 10, 2017 COMPLETE CBC W/AUTO DIFF WBC March 10, 2017 VENIPUNCT, ROUTINE* March 10, 2017 ELECTROCARDIOGRAM, TRACING March 10, 2017 IMMUNIZATIONS No Known Immunizations MEDICAL (GENERAL) HISTORY Type Description Date Medical History migraines Medical History asthma Medical History "back issues" Medical History Referred to Cardiology Dr. Keys 2016 b ut No Showed Appt
--- OUTSIDE RECORDS SUMMARY | 2020-06-16 11:52 | XMS REPORT ---
Author Author Damion TORRES Organization [facility] Address [address] [place] [address] Care Team Providers Care Dredge Master Name Role Phone DAMION TORRES Unavailable PROBLEMS Type Condition ICD9-CM Code XQT39-VD Code Onset Dates Condition S tatus SNOMED Code Problem Mild intermittent asthma without complication J45. 20 Active 696798060 Problem Migraine without aura and without status migrain osus, not intractable G43.009 Active 888957653 Problem Migraine with aura and without status migrainosu s, not intractable G43.109 Active 6619144 ALLERGIES Substance Reaction Event Type Date Status bees anaphylaxis Non Drug Allergy May, Active ENCOUNTERS Encounter Location Date Diagnosis [place] [address] [address] Jan, Mild intermittent asthma wit hout complication J45.20 [place] [address] [address] May, [place] [address] [address] May, Migraine without aura and wi thout status migrainosus, not intractable G43.009 and Acute non-recurrent maxillary sinusitis J01.00 [place] [address] [address] Mar, Migraine with aura and witho ut status migrainosus, not intractable G43.109 ; Intermittent palpitations R00.2 and Family history of heart disease Z82.49 [facility] [address] [place] [id number] [place] [id number] February, Migraine with aura and witho ut status migrainosus, not intractable G43.109 ; Intermittent palpitations R00.2 and Family history of heart disease Z82.49 [facility] [address] [facility] [place] [id number] [place] [address] Jan, History of migraine headache s Z86.69 IMMUNIZATIONS No Known Immunizations SOCIAL HISTORY Never Assessed REASON FOR VISIT [place] off yesterday, eyes matting over night, and then this morning Migraine star laney while at work. He reports taking hie Propranolol, along with, Dayquil, and his 's Tylenol #3--ABoggsAARONN PLAN OF CARE Activity Details Follow Up 3 Months Reason: VITAL SIGNS Height 71 in 2017-06-24 Weight 199.8 lbs 2017-06-24 Temperature 97.9 degrees Fahrenheit 2017-06-24 Heart Rate 60 bpm 2017-06-24 BMI 27.86 kg/m2 2017-06-24 Blood pressure systolic 92 mmHg 2017-06-24 Blood pressure diastolic 60 mmHg 2017-06-24 MEDICATIONS Medication Instructions Dosage Frequency Start Date End Date Duration S tatus Amoxicillin 500 mg Orally 3 times a day 1 tablet 8h May, 17 Jul, 07 days Active Propranolol HCl 60 mg Orally daily x 7 days and then bid 1 tablet 90 days Active Imitrex STATdose System 6 MG/0.5ML Subcutaneous Twice a day 0.5 ml as needed 12h May, Active Claritin 10 MG Orally Once a day 1 capsule 24h Active RESULTS No Results PROCEDURES No Known procedures INSTRUCTIONS MEDICATIONS ADMINISTERED No Known Medications MEDICAL (GENERAL) HISTORY Type Description Date Medical History migraines Medical History asthma Medical History "back issues" Medical History Referred to Cardiology Dr. Keys 2016 b ut No Showed Appt
--- OUTSIDE RECORDS SUMMARY | 2020-06-16 11:52 | XMS REPORT ---
Author Author Damion RUBI Organization [facility] Address [address] [place] [address] Care Team Providers Care Qa Internship Name Role Phone ARACELI RUBI Unavailable PROBLEMS Type Condition ICD9-CM Code UTI19-JZ Code Onset Dates Condition S tatus SNOMED Code Problem Mild intermittent asthma without complication J45. 20 Active 927208438 Problem Migraine without aura and without status migrain osus, not intractable G43.009 Active 838434530 Problem Migraine with aura and without status migrainosu s, not intractable G43.109 Active 2254296 ALLERGIES No Information ENCOUNTERS Encounter Location Date Diagnosis [address] [address] Jan, Mild intermittent asthma wit hout complication J45.20 [place] [address] [address] May, [place] [address] [address] May, Migraine without aura and wi thout status migrainosus, not intractable G43.009 and Acute non-recurrent maxillary sinusitis J01.00 [place] [address] [address] Mar, Migraine with aura and witho ut status migrainosus, not intractable G43.109 ; Intermittent palpitations R00.2 and Family history of heart disease Z82.49 [place] [address] [address] February, Migraine with aura and witho ut status migrainosus, not intractable G43.109 ; Intermittent palpitations R00.2 and Family history of heart disease Z82.49 [place] [address] [place] [id number] [place] [address] Jan, History of migraine headache s Z86.69 IMMUNIZATIONS No Known Immunizations SOCIAL HISTORY Never Assessed REASON FOR VISIT Requests return call PLAN OF CARE VITAL SIGNS MEDICATIONS Unknown Medications RESULTS No Results PROCEDURES No Known procedures INSTRUCTIONS MEDICATIONS ADMINISTERED No Known Medications MEDICAL (GENERAL) HISTORY Type Description Date Medical History migraines Medical History asthma Medical History "back issues" Medical History Referred to Cardiology Dr. Keys 2016 b ut No Showed Appt
[2020-06-16 12:08] LABS: CARBON DIOXIDE 26 MMOL/L (21-32); CHLORIDE 103 MMOL/L (98-107); POTASSIUM 4.3 MMOL/L (3.6-5.0); SODIUM 139 MMOL/L (135-145)
[2020-06-16 12:09] LABS: ALANINE AMINOTRANSFERASE 21 U/L (0-55); ALKALINE PHOSPHATASE 75 U/L (40-136); BILIRUBIN,TOTAL 0.3 MG/DL (0.1-1.0); BUN/CREATININE RATIO 20; CALCIUM 10.1 MG/DL (8.5-10.1); CREATININE SERUM 0.95 MG/DL (0.60-1.30); GFR ESTIMATED > 60; GLUCOSE 102 MG/DL (70-105)
[2020-06-16 12:10] LABS: ALBUMIN 4.4 GM/DL (3.2-4.5); TOTAL PROTEIN 7.4 GM/DL (6.4-8.2)
[2020-06-16 12:28] LABS: MAGNESIUM 2.1 MG/DL (1.6-2.4)
[2020-06-16 12:29] LABS: LIPASE 27 U/L (8-78)
[2020-06-16 12:42] VITALS: BP 122/62
== END 2020-06-16 12:42 | disposition home or self-care (01) ==
LOC: EDUNIT# 10:35 → ER FS 10:37
DX: R00.2 Palpitations (principal); G43.909 Migraine, unspecified, not intractable, without status migrainosus; Z87.891 Personal history of nicotine dependence
CPT/HCPCS: 36415; 71045; 80053; 83690; 83735; 83874; 83880; 84484; 85025; 85379; 85610; 85730; 93005; 93041

== ENCOUNTER → 2020-12-29 | Outpatient (CLI) | payer BC ==
[~2020-12-29] MED LIST changes: -SUMA11AE NS; +SUMA11AE2 NS
== END ==
LOC: CARD 09:30
PROVIDERS: ATTEND Internal Medicine Cardiovascular Disease
DX: I34.0 Nonrheumatic mitral (valve) insufficiency (principal)
CPT/HCPCS: 93017; 93225; 93226; 93306

== ENCOUNTER 2021-04-10 14:37 | Emergency (ER) | payer OTHER, BC ==
[~2021-04-10] VITALS: Ht 185.4 cm; Wt 88.1 kg
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
[2021-04-10] MEDS ORDERED: TETANUS,DIPTH,PERTUSS P/F (BOOSTRIX) 0.5 ML VIAL IM ONE (15:00)
[2021-04-10] MEDS ORDERED: ACET1TAB43 PO ×2 (15:19→16:31)
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
[2021-04-10 16:15] VITALS: BP 142/75
== END 2021-04-10 16:03 | disposition home or self-care (01) ==
LOC: EDUNIT# 14:37 → ER FS 14:38
DX: S62.201A Unspecified fracture of first metacarpal bone, right hand, initial encounter for closed fracture (principal); S20.212A Contusion of left front wall of thorax, initial encounter; S40.812A Abrasion of left upper arm, initial encounter; S50.812A Abrasion of left forearm, initial encounter; S40.212A Abrasion of left shoulder, initial encounter; J45.909 Unspecified asthma, uncomplicated; G43.909 Migraine, unspecified, not intractable, without status migrainosus; Z23 Encounter for immunization; Z87.891 Personal history of nicotine dependence; Z79.899 Other long term (current) drug therapy; V29.9XXA Motorcycle rider (driver) (passenger) injured in unspecified traffic accident, initial encounter
CPT/HCPCS: 71100; 73130; 90715